=== PATIENT | female | born 1975 | race Caucasian/White ===

== ENCOUNTER 2017-04-10 12:37 | Emergency (ER) | payer OTHER | END 2017-04-10 13:30 | disposition home or self-care (01) | LOC: ER 12:37 | DX: M77.11 Lateral epicondylitis, right elbow (principal) | CPT/HCPCS: 73080; 99284 ==

== ENCOUNTER 2017-10-13 20:52 | Inpatient (IN) | payer OTHER ==
[~2017-10-13] VITALS: Ht 170.2 cm; Wt 80.3 kg
[~2017-10-13 20:52] MED LIST: DICL50TA2 PO; ONDA4TAB12 PO
[2017-10-13 22:23] LABS: BASO # 0.1 x10^3/uL (0.0-0.2); BASO % 1 % (0-3); EOS # 0.1 x10^3/uL (0.0-0.7); EOS % 1 % (0-3); HEMATOCRIT 45.9 % (36.0-47.0); HEMOGLOBIN 16.6 g/dL (12.0-15.5); LYMPH % 37 % (24-48); MEAN CORPUSCULAR HEMOGLOBIN 34 pg (25-35); MEAN CORPUSCULAR HGB CONC 36 g/dL (31-37); MEAN CORPUSCULAR VOLUME 93 fL (79-100); MONO # 0.9 x10^3/uL (0.0-1.1); MONO % 9 % (0-9); NEUT # 5.6 x10^3uL (1.8-7.7); NEUT % 52 % (31-73); PLATELET COUNT 202 x10^3/uL (140-400); RED BLOOD COUNT 4.94 x10^6/uL (3.50-5.40); RED CELL DISTRIBUTION WIDTH 13.2 % (11.5-14.5); WHITE BLOOD COUNT 10.7 x10^3/uL (4.0-11.0)
[2017-10-13 22:25] LABS: BILIRUBIN,URINE NEGATIVE (NEG); CLARITY,URINE CLOUDY; COLOR,URINE YELLOW; NITRITE,URINE NEGATIVE (NEG); PROTEIN,URINE NEGATIVE (NEG-TRACE); UROBILINOGEN,URINE 0.2 mg/dL (0.2 mg/dL)
[2017-10-13] MEDS ORDERED: fentaNYL PF VIAL 100 MCG/2 ML VIAL IV ONE (22:30)
[2017-10-13] MEDS ORDERED: ONDANSETRON PF 4 MG/2 ML VIAL. IV ONE (22:30)
[2017-10-13] MEDS ORDERED: IV NORMAL SALINE 1000ML BAG 1,000 ML IV SCH (22:30)
[2017-10-13] MEDS ORDERED: FAMOTIDINE 20 MG/2 ML VIAL IVP ONE (22:30)
[2017-10-13 22:34] LABS: BARBITURATES NEG (NEG); BENZODIAZEPINES NEG (NEG); CANNABINOIDS NEG (NEG); COCAINE NEG (NEG); METHADONE NEG (NEG); OPIATES NEG (NEG); PHENCYCLIDINE NEG (NEG)
[2017-10-13 22:35] LABS: AMORPHOUS SEDIMENT,UR PRESENT /HPF; BACTERIA,URINE 0 /HPF (0-FEW); SQUAMOUS EPITHELIAL CELL,UR MOD /LPF; TRICHOMONAS,URINE PRESENT; WBC,URINE TNTC /HPF (0-4)
[2017-10-13 22:38] LABS: AMPHETAMINE/METHAMPHETAMINE NEG (NEG)
[2017-10-13 22:39] LABS: ALBUMIN 3.9 g/dL (3.4-5.0); CALCIUM 9.3 mg/dL (8.5-10.1); CREATININE 0.7 mg/dL (0.6-1.0); GFR 91.8; TOTAL BILIRUBIN 0.4 mg/dL (0.2-1.0); TOTAL PROTEIN 7.7 g/dL (6.4-8.2)
[2017-10-13 22:45] LABS: POTASSIUM 2.9 mmol/L (3.5-5.1)
[2017-10-13] MEDS ORDERED: CONTRAST GIVEN. MC PRN (23:00)
--- NOTE | 2017-10-13 23:22 | RAD ---
PQRS Compliance statement: One or more of the following individualized dose reduction techniques were utilized for this examination: 1. Automated exposure control. 2. Adjustment of the mA and/or kV according to patient size. 3. Use of iterative reconstruction technique. Indication:abd pain TECHNIQUE: CT abdomen and pelvis with IV contrast with multiplanar reformats. COMPARISON: 04/23/2012 FINDINGS: Heart is normal in size. No pericardial or pleural effusion. Clear lung bases. Liver is moderately enlarged measuring 26 cm without focal lesion. No radiopaque gallstones. No pericholecystic fluid or gallbladder wall thickening. Spleen is not enlarged and show no focal lesion. Pancreas within normal limits without peripancreatic inflammatory changes or focal pancreatic lesion. Adrenal glands show no focal mass. No nephrolithiasis or hydronephrosis. No suspicious renal lesion. No free pelvic fluid or ascites. No enlarged retroperitoneal or pelvic adenopathy. Normal appendix. No bowel obstruction. Likely partial hysterectomy. Urinary bladder demonstrates no radiopaque stones. No pneumoperitoneum. No suspicious bony lesion. IMPRESSION: 1. Moderate hepatomegaly. Electronically signed by: Claudio Cha DO (10/13/2017 11:18 PM) [facility]
[2017-10-13] MEDS ORDERED: POTASSIUM CHLORIDE 20 MEQ TABLET.ER. PO ONE (23:30)
[2017-10-13] MEDS ORDERED: IOHEXOL 300 MG/ML 100ML VIAL. IV ONE (23:30)
--- NOTE | 2017-10-13 23:43 | PHYS DOC ---
Past Medical History Past Medical History: Hypertension Past Surgical History: Hysterectomy, Tonsillectomy, Tubal ligation Additional Past Surgical Histo: SCREWS ON R ANKLE Alcohol Use: Heavy Additional Information: PT DRANK 5 GLASSES OF WINE [employer] Drug Use: None Adult General Chief Complaint Chief Complaint: ABDOMINAL PAIN [facility] HPI Patient is a 42 year old female who presents with abdominal pain and bloating since Tuesday. She states that she had a bowel movement yesterday and it was normal for her. Patient states she has been drinking heavily last few months. Patient states at least 5 glasses of wine a night. Patient states she had 5 glasses of wine tonight. Patient states that at times she has burning with urination and she has an appointment at 9:30 in the morning with her doctor but states she could not make it that long. Patient has no known drug allergies. She rates her pain a 10 out of 10. Review of Systems Review of Systems Constitutional: Denies fever or chills [] Eyes: Denies change in visual acuity, redness, or eye pain [] HENT: Denies nasal congestion or sore throat [] Respiratory: Denies cough or shortness of breath [] Cardiovascular: No additional information not addressed in HPI [] GI: Right upper and left lower abdominal pain, nausea, vomiting. Denies bloody stools or diarrhea [] : Dysuria or hematuria [] Musculoskeletal: Denies back pain or joint pain [] Integument: Denies rash or skin lesions [] Neurologic: Denies headache, focal weakness or sensory changes [] Endocrine: Denies polyuria or polydipsia [] All other systems were reviewed and found to be within normal limits, except as documented in this note. Current Medications Current Medications Current Medications Medications (Trade) Dose Ordered Sig/Sheree Start Time Stop Time Status Last Admin Dose Admin Famotidine (Pepcid Vial) 20 mg 1X ONCE 10/13/17 22:30 10/13/17 22:31 DC 10/13/17 22:47 20 MG Fentanyl Citrate (Fentanyl 2ml Vial) 25 mcg 1X ONCE 10/13/17 22:30 10/13/17 22:31 DC 10/13/17 22:47 25 MCG Info (CONTRAST GIVEN -- Rx MONITORING) 1 each PRN DAILY PRN 10/13/17 23:00 10/15/17 22:59 Iohexol (Omnipaque 300 Mg/ml) 75 ml 1X ONCE 10/13/17 23:30 10/13/17 23:31 DC 10/13/17 23:09 75 ML Ondansetron HCl (Zofran) 4 mg 1X ONCE 10/13/17 22:30 10/13/17 22:31 DC 10/13/17 22:47 4 MG Potassium Chloride (Klor-Con) 40 meq 1X ONCE 10/13/17 23:30 10/13/17 23:31 DC 10/13/17 23:57 40 MEQ Sodium Chloride 1,000 ml @ 1,000 mls/hr Q1H 10/13/17 22:30 10/13/17 23:29 DC 10/13/17 22:47 1,000 MLS/HR Allergies Allergies Allergies Coded Allergies Type Severity Reaction Last Updated Verified No Known Drug Allergies 04/30/14 No Physical Exam Physical Exam Constitutional: Well developed, well nourished, no acute distress, non-toxic appearance. [] HENT: Normocephalic, atraumatic, bilateral external ears normal, oropharynx moist, no oral exudates, nose normal. [] Eyes: PERRLA, EOMI, conjunctiva normal, no discharge. [] Neck: Normal range of motion, no tenderness, supple, no stridor. [] Cardiovascular:Heart rate regular rhythm, no murmur [] Lungs & Thorax: Bilateral breath sounds clear to auscultation [] Abdomen: Bowel sounds normal, soft, RUQ and LUQ tenderness, no masses, no pulsatile masses. [] Skin: Warm, dry, no erythema, no rash. [] Back: No tenderness, no CVA tenderness. [] Extremities: No tenderness, no cyanosis, no clubbing, ROM intact, no edema. [] Neurologic: Alert and oriented X 3, normal motor function, normal sensory function, no focal deficits noted. [] Psychologic: Affect normal, judgement normal, mood normal. [] Current Patient Data Vital Signs Vital Signs Date Time Temp Pulse Resp B/P (MAP) Pulse Ox O2 Delivery O2 Flow Rate FiO2 10/13/17 22:47 22 Room Air 10/13/17 21:30 97.7 87 163/103 (123) 99 97.7 Lab Values Laboratory Tests Test 10/13/17 21:11 10/13/17 21:44 Urine Collection Type Unknown Urine Color Yellow Urine Clarity Cloudy Urine pH 6.0 Urine Specific [place] 1.010 Urine Protein Negative mg/dL (NEG-TRACE) Urine Glucose (UA) Negative mg/dL (NEG) Urine Ketones (Stick) Negative mg/dL (NEG) Urine Blood Moderate (NEG) Urine Nitrite Negative (NEG) Urine Bilirubin Negative (NEG) Urine Urobilinogen Dipstick 0.2 mg/dL (0.2 mg/dL) Urine Leukocyte Esterase Large (NEG) Urine RBC 11-20 /HPF (0-2) Urine WBC Tntc /HPF (0-4) Urine Squamous Epithelial Cells Mod /LPF Urine Amorphous Sediment Present /HPF Urine Bacteria 0 /HPF (0-FEW) Urine Mucus Slight /LPF Urine Trichomonas Present Urine Opiates Screen Neg (NEG) Urine Methadone Screen Neg (NEG) Urine Barbiturates Neg (NEG) Urine Phencyclidine Screen Neg (NEG) Urine Amphetamine/Methamphetamine Neg (NEG) Urine Benzodiazepines Screen Neg (NEG) Urine Cocaine Screen Neg (NEG) Urine Cannabinoids Screen Neg (NEG) Urine Ethyl Alcohol Pos (NEG) White Blood Count 10.7 x10^3/uL (4.0-11.0) Red Blood Count 4.94 x10^6/uL (3.50-5.40) Hemoglobin 16.6 g/dL (12.0-15.5) H Hematocrit 45.9 % (36.0-47.0) Mean Corpuscular Volume 93 fL (79-100) Mean Corpuscular Hemoglobin 34 pg (25-35) Mean Corpuscular Hemoglobin Concent 36 g/dL (31-37) Red Cell Distribution Width 13.2 % (11.5-14.5) Platelet Count 202 x10^3/uL (140-400) Neutrophils (%) (Auto) 52 % (31-73) Lymphocytes (%) (Auto) 37 % (24-48) Monocytes (%) (Auto) 9 % (0-9) Eosinophils (%) (Auto) 1 % (0-3) Basophils (%) (Auto) 1 % (0-3) Neutrophils # (Auto) 5.6 x10^3uL (1.8-7.7) Lymphocytes # (Auto) 4.0 x10^3/uL (1.0-4.8) Monocytes # (Auto) 0.9 x10^3/uL (0.0-1.1) Eosinophils # (Auto) 0.1 x10^3/uL (0.0-0.7) Basophils # (Auto) 0.1 x10^3/uL (0.0-0.2) Sodium Level 131 mmol/L (136-145) L Potassium Level 2.9 mmol/L (3.5-5.1) *L Chloride Level 96 mmol/L (98-107) L Carbon Dioxide Level 28 mmol/L (21-32) Anion Gap 7 (6-14) Blood Urea Nitrogen 4 mg/dL (7-20) L Creatinine 0.7 mg/dL (0.6-1.0) Estimated GFR (Cockcroft-Gault) 91.8 BUN/Creatinine Ratio 6 (6-20) Glucose Level 95 mg/dL (70-99) Calcium Level 9.3 mg/dL (8.5-10.1) Total Bilirubin 0.4 mg/dL (0.2-1.0) Aspartate Amino Transferase (AST) 23 U/L (15-37) Alanine Aminotransferase (ALT) 27 U/L (14-59) Alkaline Phosphatase 80 U/L (46-116) Troponin I Quantitative < 0.017 ng/mL (0.000-0.055) Total Protein 7.7 g/dL (6.4-8.2) Albumin 3.9 g/dL (3.4-5.0) Albumin/Globulin Ratio 1.0 (1.0-1.7) Lipase 1026 U/L (73-393) H Ethyl Alcohol Level 127 mg/dL (0-10) H Laboratory Tests 10/13/17 21:44 Laboratory Tests 10/13/17 21:44 EKG EKG Sinus rhythm, no STEMI[] Interpretation Time: [address] Ulloa Radiology/Procedures Radiology/Procedures [][facility] [address] [place] [address] IMAGING REPORT Signed PATIENT: CHRISTIE ARMSTRONG ACCOUNT: [id number] : 1975 LOCATION: ER AGE: 42 SEX: F EXAM STATUS: REG ER ORD. PHYSICIAN: KATELYN GONZALEZ APRN REASON: abdominal pain PROCEDURE: CT ABD PELV W/ IV CONTRST ONLY PQRS Compliance statement: One or more of the following individualized dose reduction techniques were utilized for this examination: 1. Automated exposure control. 2. Adjustment of the mA and/or kV according to patient size. 3. Use of iterative reconstruction technique. Indication:abd pain TECHNIQUE: CT abdomen and pelvis with IV contrast with multiplanar reformats. COMPARISON: 04/23/2012 FINDINGS: Heart is normal in size. No pericardial or pleural effusion. Clear lung bases. Liver is moderately enlarged measuring 26 cm without focal lesion. No radiopaque gallstones. No pericholecystic fluid or gallbladder wall thickening. Spleen is not enlarged and show no focal lesion. Pancreas within normal limits without peripancreatic inflammatory changes or focal pancreatic lesion. Adrenal glands show no focal mass. No nephrolithiasis or hydronephrosis. No suspicious renal lesion. No free pelvic fluid or ascites. No enlarged retroperitoneal or pelvic adenopathy. Normal appendix. No bowel obstruction. Likely partial hysterectomy. Urinary bladder demonstrates no radiopaque stones. No pneumoperitoneum. No suspicious bony lesion. IMPRESSION: 1. Moderate hepatomegaly. Electronically signed by: Claudio Cha DO (10/13/2017 11:18 PM) [facility] DICTATED and SIGNED BY: CLAUDIO CHA DO Course & Med Decision Making Course & Med Decision Making Upon examination patient's abdomen is distended but very soft. Patient has right upper and left mid to lower abdominal pain tenderness. Patient rates pain a 10 out of 10 patient states she drank 5 glasses of wine tonight. No masses were felt with palpation and abdomen. Patient's urine showed that she had Trichomonas. Flagyl was withholding the ED due to her alcohol intoxication. This was also told to the hospitalist Dr. Camacho when she was called. Patient's lipase is 1026 and potassium 2.9. Patient was given 40 potassium by mouth in the ED. She to be admitted for pancreatitis. Patient CT of the abdomen showed enlarged liver. Patient is alert and oriented. Patient is neurologically intact. [] Dragon Disclaimer Dragon Disclaimer This electronic medical record was generated, in whole or in part, using a voice recognition dictation system. Departure Departure Impression: Primary Impression: Pancreatitis Disposition: 09 ADMITTED INPATIENT Admitting Physician: Other Referrals: TYRELL COWAN MD (PCP) Problem Qualifiers Primary Impression: Pancreatitis Chronicity: acute Pancreatitis type: alcohol induced Acute pancreatitis complication: unspecified Qualified Codes: K85.20 - Alcohol induced acute pancreatitis without necrosis or infection KATELYN GONZALEZ [employer] RE[employer]IER Oct 13, 2017 23:43
[2017-10-14] VITALS (7 sets, daily range): BP systolic 100–124; BP diastolic 56–77
[2017-10-14] MEDS ORDERED: IV NORMAL SALINE 1000ML BAG 1,000 ML IV SCH (00:30)
[2017-10-14] MEDS: fentaNYL PF VIAL 100 MCG/2 ML VIAL IV PRN ×2 (00:31→03:33)
[2017-10-14] MEDS ORDERED: PHEN37.5 PO (01:36)
[2017-10-14] MEDS ORDERED: PHEN37.53 PO (01:36)
[2017-10-14] MEDS ORDERED: HYDR25TA9 PO (01:36)
[2017-10-14] MEDS ORDERED: ESTR1PAT31 TD (01:36)
--- NOTE | 2017-10-14 06:44 | EKG ---
[facility] [address] [place] [address] Test Date: 2017-10-13 Test Time: 22:33:13 Pat Name: CHRISTIE ARMSTRONG Department: Room: [facility] Gender: F Physical Integration Practitioner: : 1975 Requested By: KATELYN GONZALEZ Order Number: [id number] Reading MD: Chi Harper MD Measurements Intervals [place] Rate: 89 P: 30 MA: 138 QRS: 45 QRSD: 82 T: 52 QT: 378 QTc: 467 Interpretive Statements SINUS RHYTHM Electronically Signed On 10-18-2017 11:47:09 CDT by Chi Harper MD
[2017-10-14] MEDS ORDERED: ONDANSETRON PF 4 MG/2 ML VIAL. IV PRN ×2 (07:45→10:00)
--- NOTE | 2017-10-14 09:06 | PDOC2 ---
GI CONSULT Reason For Consult: Elevated lipase HPI: HPI: 42 y/o female admitted through ER. Intentional weight loss of 60 lbs w/ phentermine since 12/2016. Difficult breakup ~2 months ago, can't sleep, coping w/ heavy alcohol use of ~5 glasses of wine each night. Bloating and diffuse abd discomfort since Mon or Tu. No nausea or vomiting but hasn't eaten in a couple days - currently "starving." Thought maybe she had UTI, took some Azo - not sure if helped. Was started on "hormones" for possible menopause, had some diarrhea after this. No hematochezia or melena. No reflux or dysphagia. No previous EGD or colonoscopy. No liver, GB, or pancreas history. No NSAIDs. Never treated for depression. Again says she's starving. PMH: PMH: HTN (better w/ weight loss), partial hysterectomy, tonsillectomy, tubal ligation , right ankle repair w/ screws FH: Family History: Cancer (granmother - ?gastric lymphoma), Other (son - "esophagus condition") Social History: Smoke: 1 pack per day ALCOHOL: heavy Drugs: None ROS: GEN: Denies fevers, chills, sweats HEENT: Denies blurred vision, sore throat CV: Denies chest pain RESP: Denies shortness of air, cough GI: Per HPI : ?dysuria ENDO: +weight loss NEURO: Denies confusion, dizziness MSK: Denies weakness, joint pain/swelling SKIN: Denies jaundice, pruritus Vitals: Vitals: Vital Signs Date Time Temp Pulse Resp B/P (MAP) Pulse Ox O2 Delivery O2 Flow Rate FiO2 10/14/17 08:00 Room Air 10/14/17 07:59 98.0 72 16 110/61 (77) 98 98.0 Labs: Labs: Laboratory Tests Test 10/13/17 21:11 10/13/17 21:44 Urine Collection Type Unknown Urine Color Yellow Urine Clarity Cloudy Urine pH 6.0 Urine Specific [place] 1.010 Urine Protein Negative mg/dL (NEG-TRACE) Urine Glucose (UA) Negative mg/dL (NEG) Urine Ketones (Stick) Negative mg/dL (NEG) Urine Blood Moderate (NEG) Urine Nitrite Negative (NEG) Urine Bilirubin Negative (NEG) Urine Urobilinogen Dipstick 0.2 mg/dL (0.2 mg/dL) Urine Leukocyte Esterase Large (NEG) Urine RBC 11-20 /HPF (0-2) Urine WBC Tntc /HPF (0-4) Urine Squamous Epithelial Cells Mod /LPF Urine Amorphous Sediment Present /HPF Urine Bacteria 0 /HPF (0-FEW) Urine Mucus Slight /LPF Urine Trichomonas Present Urine Opiates Screen Neg (NEG) Urine Methadone Screen Neg (NEG) Urine Barbiturates Neg (NEG) Urine Phencyclidine Screen Neg (NEG) Urine Amphetamine/Methamphetamine Neg (NEG) Urine Benzodiazepines Screen Neg (NEG) Urine Cocaine Screen Neg (NEG) Urine Cannabinoids Screen Neg (NEG) Urine Ethyl Alcohol Pos (NEG) White Blood Count 10.7 x10^3/uL (4.0-11.0) Red Blood Count 4.94 x10^6/uL (3.50-5.40) Hemoglobin 16.6 g/dL (12.0-15.5) Hematocrit 45.9 % (36.0-47.0) Mean Corpuscular Volume 93 fL (79-100) Mean Corpuscular Hemoglobin 34 pg (25-35) Mean Corpuscular Hemoglobin Concent 36 g/dL (31-37) Red Cell Distribution Width 13.2 % (11.5-14.5) Platelet Count 202 x10^3/uL (140-400) Neutrophils (%) (Auto) 52 % (31-73) Lymphocytes (%) (Auto) 37 % (24-48) Monocytes (%) (Auto) 9 % (0-9) Eosinophils (%) (Auto) 1 % (0-3) Basophils (%) (Auto) 1 % (0-3) Neutrophils # (Auto) 5.6 x10^3uL (1.8-7.7) Lymphocytes # (Auto) 4.0 x10^3/uL (1.0-4.8) Monocytes # (Auto) 0.9 x10^3/uL (0.0-1.1) Eosinophils # (Auto) 0.1 x10^3/uL (0.0-0.7) Basophils # (Auto) 0.1 x10^3/uL (0.0-0.2) Sodium Level 131 mmol/L (136-145) Potassium Level 2.9 mmol/L (3.5-5.1) Chloride Level 96 mmol/L (98-107) Carbon Dioxide Level 28 mmol/L (21-32) Anion Gap 7 (6-14) Blood Urea Nitrogen 4 mg/dL (7-20) Creatinine 0.7 mg/dL (0.6-1.0) Estimated GFR (Cockcroft-Gault) 91.8 BUN/Creatinine Ratio 6 (6-20) Glucose Level 95 mg/dL (70-99) Calcium Level 9.3 mg/dL (8.5-10.1) Total Bilirubin 0.4 mg/dL (0.2-1.0) Aspartate Amino Transf (AST/SGOT) 23 U/L (15-37) Alanine Aminotransferase (ALT/SGPT) 27 U/L (14-59) Alkaline Phosphatase 80 U/L (46-116) Troponin I Quantitative < 0.017 ng/mL (0.000-0.055) Total Protein 7.7 g/dL (6.4-8.2) Albumin 3.9 g/dL (3.4-5.0) Albumin/Globulin Ratio 1.0 (1.0-1.7) Lipase 1026 U/L (73-393) Ethyl Alcohol Level 127 mg/dL (0-10) Allergies: Coded Allergies: No Known Drug Allergies (Unverified , 04/30/14) Medications: Current Medications Medications (Trade) Dose Ordered Sig/Sheree Route PRN Reason Start Time Stop Time Status Last Admin Dose Admin Sodium Chloride 1,000 ml @ 1,000 mls/hr Q1H IV 10/13/17 22:30 10/13/17 23:29 DC 10/13/17 22:47 Fentanyl Citrate (Fentanyl 2ml Vial) 25 mcg 1X ONCE IV 10/13/17 22:30 10/13/17 22:31 DC 10/13/17 22:47 Ondansetron HCl (Zofran) 4 mg 1X ONCE IV 10/13/17 22:30 10/13/17 22:31 DC 10/13/17 22:47 Famotidine (Pepcid Vial) 20 mg 1X ONCE IVP 10/13/17 22:30 10/13/17 22:31 DC 10/13/17 22:47 Iohexol (Omnipaque 300 Mg/ml) 75 ml 1X ONCE IV 8/30/18 23:30 10/13/17 23:31 DC 10/13/17 23:09 Potassium Chloride (Klor-Con) 40 meq 1X ONCE PO 10/13/17 23:30 10/13/17 23:31 DC 10/13/17 23:57 Fentanyl Citrate (Fentanyl 2ml Vial) 50 mcg PRN Q2HR PRN IV SEVERE PAIN 10/14/17 00:00 10/14/17 23:59 10/14/17 03:33 Sodium Chloride 1,000 ml @ 100 mls/hr Q10H IV 10/14/17 00:30 10/14/17 00:31 DC 10/14/17 00:30 Ondansetron HCl (Zofran) 4 mg PRN Q8HRS PRN IV NAUSEA/VOMITING 10/14/17 07:45 10/14/17 07:53 Imaging: Imaging: CT A/P IMPRESSION: 1. Moderate hepatomegaly. PE: GEN: NAD HEENT: Atraumatic, PERRL LUNGS: CTAB HEART: RRR ABD: NABS, soft, perhaps some distention, vaguely tender throughout EXTREMITY: No edema SKIN: No rashes, no jaundice NEURO/PSYCH: A & O 3 A/P: A/P: Abd bloating/discomfort Pancreatitis Hepatomegaly Trichomonas Intentional weight loss ?diarrhea CRC screen - average risk Alcohol overuse, depression, insomnia, hypokalemia, hyponatremia -- Pancreatitis and hepatomegaly likely 2/2 alcohol. Defer trichomonas and depression issues to primary, along w/ low Na+ and K+ Check US r/o cholelithiasis. Okay to start clears, ADAT after. HENRY WILLARD Oct 14, 2017 09:06
[2017-10-14] MEDS ORDERED: PANTOPRAZOLE 40 MG TABLET.DR. PO ONE (10:00)
[2017-10-14] MEDS ORDERED: chlordiazePOXIDE HCL 25 MG CAPSULE PO PRN (10:00)
[2017-10-14] MEDS: THIAMINE 100 MG TABLET. PO SCH (10:56)
[2017-10-14] MEDS: MULTIVITAMIN with MINERAL TABLET. PO SCH (10:56)
[2017-10-14] MEDS: FOLIC ACID 1 MG TABLET. PO SCH (10:56)
[2017-10-14] MEDS: IV NORMAL SALINE 1000ML BAG 1,000 ML IV SCH ×2 (10:56→20:33)
--- NOTE | 2017-10-14 11:03 | RAD ---
EXAM: Abdomen sonogram. HISTORY: Pancreatitis. TECHNIQUE: Sonographic imaging of the abdomen was performed. COMPARISON: CT dated 10/13/2017. FINDINGS: The liver is enlarged. There is hepatic steatosis. No focal hepatic lesion is seen. The common bile duct is normal in caliber. The gallbladder is unremarkable. The right kidney is unremarkable. The pancreas is partially obscured due to bowel gas. The aorta is normal in caliber. The inferior vena cava is patent. IMPRESSION: 1. Hepatomegaly and hepatic steatosis. 2. Partially obscured pancreas due to bowel gas. Electronically signed by: Anuja Canales MD (10/14/2017 10:59 AM) [facility] [id number]
[2017-10-14] MEDS ORDERED: NICOTINE 21MG PATCH. TD PRN (11:15)
--- NOTE | 2017-10-14 12:37 | PDOC1 ---
History and Physical Date of Admission Date of Admission DATE: 10/14/17 TIME: 12:35 Identification/Chief Complaint Chief Complaint Abdominal pain Source Source: Caregiver, Chart review, Patient History of Present Illness History of Present Illness 42-year-old female with no significant past medical history but does drink vodka - comes in because of abdominal pain x few days. NO diarrhea, no emesis. Lipase is 1026 on admission, with alcohol levels 127. Some mild hyponatremia 131 and critical hypokalemia 2.9. Fatty liver on imaging. Admitted for acute alcoholic pancreatitis. gallbladder looks normal, this is her first episode of pancreatitis. She is nontoxic appearing, abdomen is soft. Started on liquid diet by GI. Past Medical History Cardiovascular: No pertinent hx Pulmonary: No pertinent hx GI: No pertinent hx Heme/Onc: No pertinent hx Hepatobiliary: No pertinent hx Psych: No pertinent hx Rheumatologic: No pertinent hx Infectious disease: No pertinent hx ENT: No pertinent hx Renal/: No pertinent hx Endocrine: No pertinent hx Dermatology: No pertinent hx Past Surgical History Past Surgical History: No pertinent history Family History Family History: Hypertension Social History Smoke: 1 pack per day ALCOHOL: heavy Drugs: None Current Problem List Problem List Problems Medical Problems: (1) Hepatitis Status: Acute Current Medications Current Medications Current Medications Sodium Chloride 1,000 ml @ 1,000 mls/hr Q1H IV Last administered on 10/13/17at 22:47; Start 10/13/17 at 22:30; Stop 10/13/17 at 23:29; Status DC Fentanyl Citrate (Fentanyl 2ml Vial) 25 mcg 1X ONCE IV Last administered on at 22:47; Start 10/13/17 at 22:30; Stop 10/13/17 at 22:31; Status DC Ondansetron HCl (Zofran) 4 mg 1X ONCE IV Last administered on 10/13/17at 22:47 ; Start 10/13/17 at 22:30; Stop 10/13/17 at 22:31; Status DC Famotidine (Pepcid Vial) 20 mg 1X ONCE IVP Last administered on 10/13/17at 22: 47; Start 10/13/17 at 22:30; Stop 10/13/17 at 22:31; Status DC Iohexol (Omnipaque 300 Mg/ml) 75 ml 1X ONCE IV Last administered on 10/13/17at 23:09; Start 10/13/17 at 23:30; Stop 10/13/17 at 23:31; Status DC Potassium Chloride (Klor-Con) 40 meq 1X ONCE PO Last administered on at 23:57; Start 10/13/17 at 23:30; Stop 10/13/17 at 23:31; Status DC Info (CONTRAST GIVEN -- Rx MONITORING) 1 each PRN DAILY PRN MC SEE COMMENTS; Start 10/13/17 at 23:00; Stop 10/15/17 at 22:59 Fentanyl Citrate (Fentanyl 2ml Vial) 50 mcg PRN Q2HR PRN IV SEVERE PAIN Last administered on 10/14/17at 03:33; Start 10/14/17 at 00:00; Stop 10/14/17 at 23:59 Sodium Chloride 1,000 ml @ 100 mls/hr Q10H IV Last administered on 10/14/17at 00:30; Start 10/14/17 at 00:30; Stop 10/14/17 at 00:31; Status DC Ondansetron HCl (Zofran) 4 mg PRN Q8HRS PRN IV NAUSEA/VOMITING Last administered on 10/14/17at 07:53; Start 10/14/17 at 07:45; Stop 10/14/17 at 09:51 ; Status DC Ondansetron HCl (Zofran) 4 mg PRN Q6HRS PRN IV NAUSEA/VOMITING; Start 10/14/17 at 10:00 Sodium Chloride 1,000 ml @ 125 mls/hr Q8H IV Last administered on 10/14/17at 10 :56; Start 10/14/17 at 10:00 Multivitamins (Thera M Plus) 1 tab DAILY PO Last administered on 10/14/17at 10: 56; Start 10/14/17 at 11:00 Folic Acid (Folic Acid) 1 mg DAILY PO Last administered on 10/14/17at 10:56; Start 10/14/17 at 11:00 Thiamine Mononitrate (Vitamin B-1) 100 mg DAILY PO Last administered on at 10:56; Start 10/14/17 at 11:00 Pantoprazole Sodium (Protonix) 40 mg DAILYAC PO ; Start 10/15/17 at 07:30 Pantoprazole Sodium (Protonix) 40 mg 1X ONCE PO Last administered on at 10:56; Start 10/14/17 at 10:00; Stop 10/14/17 at 10:01; Status DC Chlordiazepoxide (Librium) 25 mg PRN Q6HRS PRN PO ANXIETY / AGITATION; Start at 10:00 Nicotine (Nicoderm Cq 21mg) 1 patch PRN DAILY PRN TD SMOKING CESSATION Last administered on 10/14/17at 11:30; Start 10/14/17 at 11:15 Active Scripts Active Reported Hydrochlorothiazide Tablet (Hydrochlorothiazide) 25 Mg Tablet 1 Tab PO DAILY Phentermine Hcl 37.5 Mg Capsule 0.5 Cap PO DAILYBFRLUN Phentermine Hcl 37.5 Mg Tablet 1 Tab PO DAILYAC Estradiol 1 Each Patch.tdwk 1 Patch TD WEEKLY Allergies Allergies: Coded Allergies: No Known Drug Allergies (Unverified , 04/30/14) ROS Review of System As per history of present illness, the rest of ROS 14 point negative Physical Exam General: Alert, Oriented X3, Cooperative, No acute distress HEENT: Atraumatic, PERRLA, EOMI Lungs: Clear to auscultation, Normal air movement Heart: S1S2, RRR, no thrills, no rubs, no gallops, no murmurs Cardiovascular: S1, S2 Breasts: Normal, Rt breast nml w/o mass, Lt breast nml w/o mass, Nipples normal Abdomen: Normal bowel sounds, Soft, No tenderness, No hepatosplenomegaly, No masses Rectal Exam: not examined PELVIC: Nml ext genitalia Extremities: No clubbing, No cyanosis, No edema, Normal pulses, No tenderness/ swelling Skin: No rashes, No breakdown, No significant lesion Neuro: Normal gait, Normal speech, Strength at 5/5 X4 ext, Normal tone, Sensation intact, Cranial nerves 3-12 NL, Reflexes 2+ Psych/Mental Status: Mental status NL, Mood NL Vitals Vitals Vital Signs Date Time Temp Pulse Resp B/P (MAP) Pulse Ox O2 Delivery O2 Flow Rate FiO2 10/14/17 11:11 98.2 78 16 100/56 (71) 98 98.2 10/14/17 08:00 Room Air Labs Labs Laboratory Tests Test 10/13/17 21:11 10/13/17 21:44 Urine Collection Type Unknown Urine Color Yellow Urine Clarity Cloudy Urine pH 6.0 Urine Specific [facility] 1.010 Urine Protein Negative mg/dL (NEG-TRACE) Urine Glucose (UA) Negative mg/dL (NEG) Urine Ketones (Stick) Negative mg/dL (NEG) Urine Blood Moderate (NEG) Urine Nitrite Negative (NEG) Urine Bilirubin Negative (NEG) Urine Urobilinogen Dipstick 0.2 mg/dL (0.2 mg/dL) Urine Leukocyte Esterase Large (NEG) Urine RBC 11-20 /HPF (0-2) Urine WBC Tntc /HPF (0-4) Urine Squamous Epithelial Cells Mod /LPF Urine Amorphous Sediment Present /HPF Urine Bacteria 0 /HPF (0-FEW) Urine Mucus Slight /LPF Urine Trichomonas Present Urine Opiates Screen Neg (NEG) Urine Methadone Screen Neg (NEG) Urine Barbiturates Neg (NEG) Urine Phencyclidine Screen Neg (NEG) Urine Amphetamine/Methamphetamine Neg (NEG) Urine Benzodiazepines Screen Neg (NEG) Urine Cocaine Screen Neg (NEG) Urine Cannabinoids Screen Neg (NEG) Urine Ethyl Alcohol Pos (NEG) White Blood Count 10.7 x10^3/uL (4.0-11.0) Red Blood Count 4.94 x10^6/uL (3.50-5.40) Hemoglobin 16.6 g/dL (12.0-15.5) Hematocrit 45.9 % (36.0-47.0) Mean Corpuscular Volume 93 fL (79-100) Mean Corpuscular Hemoglobin 34 pg (25-35) Mean Corpuscular Hemoglobin Concent 36 g/dL (31-37) Red Cell Distribution Width 13.2 % (11.5-14.5) Platelet Count 202 x10^3/uL (140-400) Neutrophils (%) (Auto) 52 % (31-73) Lymphocytes (%) (Auto) 37 % (24-48) Monocytes (%) (Auto) 9 % (0-9) Eosinophils (%) (Auto) 1 % (0-3) Basophils (%) (Auto) 1 % (0-3) Neutrophils # (Auto) 5.6 x10^3uL (1.8-7.7) Lymphocytes # (Auto) 4.0 x10^3/uL (1.0-4.8) Monocytes # (Auto) 0.9 x10^3/uL (0.0-1.1) Eosinophils # (Auto) 0.1 x10^3/uL (0.0-0.7) Basophils # (Auto) 0.1 x10^3/uL (0.0-0.2) Sodium Level 131 mmol/L (136-145) Potassium Level 2.9 mmol/L (3.5-5.1) Chloride Level 96 mmol/L (98-107) Carbon Dioxide Level 28 mmol/L (21-32) Anion Gap 7 (6-14) Blood Urea Nitrogen 4 mg/dL (7-20) Creatinine 0.7 mg/dL (0.6-1.0) Estimated GFR (Cockcroft-Gault) 91.8 BUN/Creatinine Ratio 6 (6-20) Glucose Level 95 mg/dL (70-99) Calcium Level 9.3 mg/dL (8.5-10.1) Total Bilirubin 0.4 mg/dL (0.2-1.0) Aspartate Amino Transf (AST/SGOT) 23 U/L (15-37) Alanine Aminotransferase (ALT/SGPT) 27 U/L (14-59) Alkaline Phosphatase 80 U/L (46-116) Troponin I Quantitative < 0.017 ng/mL (0.000-0.055) Total Protein 7.7 g/dL (6.4-8.2) Albumin 3.9 g/dL (3.4-5.0) Albumin/Globulin Ratio 1.0 (1.0-1.7) Lipase 1026 U/L (73-393) Ethyl Alcohol Level 127 mg/dL (0-10) Laboratory Tests Test 10/13/17 21:11 10/13/17 21:44 Urine Collection Type Unknown Urine Color Yellow Urine Clarity Cloudy Urine pH 6.0 Urine Specific [facility] 1.010 Urine Protein Negative mg/dL (NEG-TRACE) Urine Glucose (UA) Negative mg/dL (NEG) Urine Ketones (Stick) Negative mg/dL (NEG) Urine Blood Moderate (NEG) Urine Nitrite Negative (NEG) Urine Bilirubin Negative (NEG) Urine Urobilinogen Dipstick 0.2 mg/dL (0.2 mg/dL) Urine Leukocyte Esterase Large (NEG) Urine RBC 11-20 /HPF (0-2) Urine WBC Tntc /HPF (0-4) Urine Squamous Epithelial Cells Mod /LPF Urine Amorphous Sediment Present /HPF Urine Bacteria 0 /HPF (0-FEW) Urine Mucus Slight /LPF Urine Trichomonas Present Urine Opiates Screen Neg (NEG) Urine Methadone Screen Neg (NEG) Urine Barbiturates Neg (NEG) Urine Phencyclidine Screen Neg (NEG) Urine Amphetamine/Methamphetamine Neg (NEG) Urine Benzodiazepines Screen Neg (NEG) Urine Cocaine Screen Neg (NEG) Urine Cannabinoids Screen Neg (NEG) Urine Ethyl Alcohol Pos (NEG) White Blood Count 10.7 x10^3/uL (4.0-11.0) Red Blood Count 4.94 x10^6/uL (3.50-5.40) Hemoglobin 16.6 g/dL (12.0-15.5) Hematocrit 45.9 % (36.0-47.0) Mean Corpuscular Volume 93 fL (79-100) Mean Corpuscular Hemoglobin 34 pg (25-35) Mean Corpuscular Hemoglobin Concent 36 g/dL (31-37) Red Cell Distribution Width 13.2 % (11.5-14.5) Platelet Count 202 x10^3/uL (140-400) Neutrophils (%) (Auto) 52 % (31-73) Lymphocytes (%) (Auto) 37 % (24-48) Monocytes (%) (Auto) 9 % (0-9) Eosinophils (%) (Auto) 1 % (0-3) Basophils (%) (Auto) 1 % (0-3) Neutrophils # (Auto) 5.6 x10^3uL (1.8-7.7) Lymphocytes # (Auto) 4.0 x10^3/uL (1.0-4.8) Monocytes # (Auto) 0.9 x10^3/uL (0.0-1.1) Eosinophils # (Auto) 0.1 x10^3/uL (0.0-0.7) Basophils # (Auto) 0.1 x10^3/uL (0.0-0.2) Sodium Level 131 mmol/L (136-145) Potassium Level 2.9 mmol/L (3.5-5.1) Chloride Level 96 mmol/L (98-107) Carbon Dioxide Level 28 mmol/L (21-32) Anion Gap 7 (6-14) Blood Urea Nitrogen 4 mg/dL (7-20) Creatinine 0.7 mg/dL (0.6-1.0) Estimated GFR (Cockcroft-Gault) 91.8 BUN/Creatinine Ratio 6 (6-20) Glucose Level 95 mg/dL (70-99) Calcium Level 9.3 mg/dL (8.5-10.1) Total Bilirubin 0.4 mg/dL (0.2-1.0) Aspartate Amino Transf (AST/SGOT) 23 U/L (15-37) Alanine Aminotransferase (ALT/SGPT) 27 U/L (14-59) Alkaline Phosphatase 80 U/L (46-116) Troponin I Quantitative < 0.017 ng/mL (0.000-0.055) Total Protein 7.7 g/dL (6.4-8.2) Albumin 3.9 g/dL (3.4-5.0) Albumin/Globulin Ratio 1.0 (1.0-1.7) Lipase 1026 U/L (73-393) Ethyl Alcohol Level 127 mg/dL (0-10) VTE Prophylaxis Ordered VTE Prophylaxis Devices: Yes VTE Pharmacological Prophylaxi: Yes Assessment/Plan Assessment/Plan Acute alcoholic pancreatitis, gallbladder normal-first episode acute panc - CIWA, abdomen is benign, not needing pain medicines, agree with trial of liquid diet - Recheck lipase tomorrow - If tolerates by mouth diet and lipase does not increase, most likely discharge home tomorrow Alcohol counseling cessation done today 1-1 APpreciate LISA QUICK MD Oct 14, 2017 12:37
[2017-10-14] MEDS ORDERED: PHENAZOPYRIDINE 200 MG TABLET. PO ONE (13:30)
[2017-10-14] MEDS: PHENAZOPYRIDINE 200 MG TABLET. PO SCH (20:32)
[2017-10-14] MEDS ORDERED: ZOLPIDEM 5 MG TABLET. PO PRN (22:00)
[2017-10-15 03:00] VITALS: BP 122/66
[2017-10-15] MEDS: IV NORMAL SALINE 1000ML BAG 1,000 ML IV SCH ×2 (04:12→07:53)
[2017-10-15 05:05] LABS: CALCIUM 8.2 mg/dL (8.5-10.1); GFR 60.8; POTASSIUM 3.7 mmol/L (3.5-5.1)
[2017-10-15 07:00] VITALS: BP 173/79
[2017-10-15] MEDS ORDERED: PANTOPRAZOLE 40 MG TABLET.DR. PO SCH (07:30)
[2017-10-15] MEDS: THIAMINE 100 MG TABLET. PO SCH (07:53)
[2017-10-15] MEDS: PHENAZOPYRIDINE 200 MG TABLET. PO SCH (07:54)
[2017-10-15] MEDS: FOLIC ACID 1 MG TABLET. PO SCH (07:54)
[2017-10-15] MEDS: MULTIVITAMIN with MINERAL TABLET. PO SCH (07:54)
[2017-10-15 11:28] VITALS: BP 132/93
[2017-10-15] MEDS ORDERED: PHEN100T82 PO (11:37)
[2017-10-15] MEDS ORDERED: CIPR500T94 PO (11:37)
[2017-10-15] MEDS ORDERED: CLOTRIMAZOLE 1% VAGINAL CREAM 45GM TUBE. VG STA (11:40)
--- NOTE | 2017-10-15 11:40 | PDOC3 ---
Discharge Summary Visit Information Date of Admission: Oct 13, 2017 Date of Discharge: Oct 15, 2017 Admitting Diagnosis Comment: Acute alcoholic pancreatitis, gallbladder normal-first episode acute panc Final Diagnosis Problems Medical Problems: (1) Hepatitis Status: Acute Brief Hospital Course Allergies Allergies Coded Allergies Type Severity Reaction Last Updated Verified No Known Drug Allergies 04/30/14 No Vital Signs Vital Signs Date Time Temp Pulse Resp B/P (MAP) Pulse Ox O2 Delivery O2 Flow Rate FiO2 10/15/17 11:28 98.0 73 16 132/93 (106) 97 Room Air 98.0 Lab Results Laboratory Tests Test 10/13/17 21:11 10/13/17 21:44 10/15/17 03:30 Urine Collection Type Unknown Urine Color Yellow Urine Clarity Cloudy Urine pH 6.0 Urine Specific [facility] 1.010 Urine Protein Negative mg/dL (NEG-TRACE) Urine Glucose (UA) Negative mg/dL (NEG) Urine Ketones (Stick) Negative mg/dL (NEG) Urine Blood Moderate (NEG) Urine Nitrite Negative (NEG) Urine Bilirubin Negative (NEG) Urine Urobilinogen Dipstick 0.2 mg/dL (0.2 mg/dL) Urine Leukocyte Esterase Large (NEG) Urine RBC 11-20 /HPF (0-2) Urine WBC Tntc /HPF (0-4) Urine Squamous Epithelial Cells Mod /LPF Urine Amorphous Sediment Present /HPF Urine Bacteria 0 /HPF (0-FEW) Urine Mucus Slight /LPF Urine Trichomonas Present Urine Opiates Screen Neg (NEG) Urine Methadone Screen Neg (NEG) Urine Barbiturates Neg (NEG) Urine Phencyclidine Screen Neg (NEG) Urine Amphetamine/Methamphetamine Neg (NEG) Urine Benzodiazepines Screen Neg (NEG) Urine Cocaine Screen Neg (NEG) Urine Cannabinoids Screen Neg (NEG) Urine Ethyl Alcohol Pos (NEG) White Blood Count 10.7 x10^3/uL (4.0-11.0) Red Blood Count 4.94 x10^6/uL (3.50-5.40) Hemoglobin 16.6 g/dL (12.0-15.5) Hematocrit 45.9 % (36.0-47.0) Mean Corpuscular Volume 93 fL (79-100) Mean Corpuscular Hemoglobin 34 pg (25-35) Mean Corpuscular Hemoglobin Concent 36 g/dL (31-37) Red Cell Distribution Width 13.2 % (11.5-14.5) Platelet Count 202 x10^3/uL (140-400) Neutrophils (%) (Auto) 52 % (31-73) Lymphocytes (%) (Auto) 37 % (24-48) Monocytes (%) (Auto) 9 % (0-9) Eosinophils (%) (Auto) 1 % (0-3) Basophils (%) (Auto) 1 % (0-3) Neutrophils # (Auto) 5.6 x10^3uL (1.8-7.7) Lymphocytes # (Auto) 4.0 x10^3/uL (1.0-4.8) Monocytes # (Auto) 0.9 x10^3/uL (0.0-1.1) Eosinophils # (Auto) 0.1 x10^3/uL (0.0-0.7) Basophils # (Auto) 0.1 x10^3/uL (0.0-0.2) Sodium Level 131 mmol/L (136-145) 140 mmol/L (136-145) Potassium Level 2.9 mmol/L (3.5-5.1) 3.7 mmol/L (3.5-5.1) Chloride Level 96 mmol/L (98-107) 108 mmol/L (98-107) Carbon Dioxide Level 28 mmol/L (21-32) 27 mmol/L (21-32) Anion Gap 7 (6-14) 5 (6-14) Blood Urea Nitrogen 4 mg/dL (7-20) 5 mg/dL (7-20) Creatinine 0.7 mg/dL (0.6-1.0) 1.0 mg/dL (0.6-1.0) Estimated GFR (Cockcroft-Gault) 91.8 60.8 BUN/Creatinine Ratio 6 (6-20) Glucose Level 95 mg/dL (70-99) 92 mg/dL (70-99) Calcium Level 9.3 mg/dL (8.5-10.1) 8.2 mg/dL (8.5-10.1) Total Bilirubin 0.4 mg/dL (0.2-1.0) Aspartate Amino Transf (AST/SGOT) 23 U/L (15-37) Alanine Aminotransferase (ALT/SGPT) 27 U/L (14-59) Alkaline Phosphatase 80 U/L (46-116) Troponin I Quantitative < 0.017 ng/mL (0.000-0.055) Total Protein 7.7 g/dL (6.4-8.2) Albumin 3.9 g/dL (3.4-5.0) Albumin/Globulin Ratio 1.0 (1.0-1.7) Lipase 1026 U/L (73-393) 183 U/L (73-393) Ethyl Alcohol Level 127 mg/dL (0-10) Laboratory Tests Test 10/15/17 03:30 Sodium Level 140 mmol/L (136-145) Potassium Level 3.7 mmol/L (3.5-5.1) Chloride Level 108 mmol/L (98-107) Carbon Dioxide Level 27 mmol/L (21-32) Anion Gap 5 (6-14) Blood Urea Nitrogen 5 mg/dL (7-20) Creatinine 1.0 mg/dL (0.6-1.0) Estimated GFR (Cockcroft-Gault) 60.8 Glucose Level 92 mg/dL (70-99) Calcium Level 8.2 mg/dL (8.5-10.1) Lipase 183 U/L (73-393) Brief Hospital Course Ms. Irizarry is a 42 old [sex] who presented with [ ]42-year-old female with no significant past medical history but does drink vodka - comes in because of abdominal pain x few days. NO diarrhea, no emesis. Lipase is 1026 on admission, with alcohol levels 127. Some mild hyponatremia 131 and critical hypokalemia 2.9. Fatty liver on imaging. Admitted for acute alcoholic pancreatitis. gallbladder looks normal, this is her first episode of pancreatitis. She is nontoxic appearing, abdomen is soft. Started on liquid diet by GI. COURSE: better after overnight fasting, gallbladder ultrasound is normal. Lipase down to normal after 24-48 hrs. of fasting. Incidentally some vaginal itching, I have Rx or gave her Diflucan by mouth and some vaginal clotrimazole before going home. Pyridium also Rx and started here. No STD as per her account. Cipro him. Although UA is negative, given to her as per her request consults performed GI Procedures performed none Time spent discharge less than 30 minutes Discharge Information Condition at Discharge: Improved, Stable Disposition/Orders: D/C to Home Scheduled Ciprofloxacin Hcl (Cipro) 500 Mg Tablet, 500 MG PO BID for 7 Days, Ref 0 Prescribed by: LISA BARILLAS on 10/15/17 1137 Estradiol (Estradiol) 1 Each Patch.tdwk, 1 PATCH TD WEEKLY, (Reported) Entered as Reported by: CONNIE FLORES on 10/14/17135 Last Action: New Order on 10/14/17135 by CONNIE FLORES Hydrochlorothiazide (Hydrochlorothiazide Tablet ) 25 Mg Tablet, 1 TAB PO DAILY, (Reported) Entered as Reported by: CONNIE FLORES on 10/14/17135 Last Action: New Order on 10/14/17135 by CONNIE FLORES Phenazopyridine Hcl (Pyridium) 100 Mg Tablet, 100 MG PO TID for 30 Days, #90 Prescribed by: LISA BARILLAS on 10/15/17 1137 Phentermine Hcl (Phentermine Hcl) 37.5 Mg Tablet, 1 TAB PO DAILYAC, (Reported) Entered as Reported by: CONNIE FLORES on 10/14/17135 Last Action: New Order on 10/14/17135 by CONNIE FLORES Phentermine Hcl (Phentermine Hcl) 37.5 Mg Capsule, 0.5 CAP PO DAILYBFRLUN, ( Reported) Entered as Reported by: CONNIE FLORES on 10/14/17135 Last Action: New Order on 10/14/17135 by LISA LEE MD Oct 15, 2017 11:40
[2017-10-15] MEDS ORDERED: FLUCONAZOLE 100 MG TABLET. PO ONE (11:45)
== END 2017-10-15 12:25 | disposition home or self-care (01) | DRG 439 ==
LOC: ER 20:52 → 6 SOUTH 23:50
PROVIDERS: ADMIT Internal Medicine; ATTEND Internal Medicine
DX: K85.20 Alcohol induced acute pancreatitis without necrosis or infection (principal); E87.1 Hypo-osmolality and hyponatremia; K75.9 Inflammatory liver disease, unspecified; E87.6 Hypokalemia; F17.210 Nicotine dependence, cigarettes, uncomplicated; I10 Essential (primary) hypertension; K76.0 Fatty (change of) liver, not elsewhere classified; Z79.890 Hormone replacement therapy; Z90.710 Acquired absence of both cervix and uterus; Z79.899 Other long term (current) drug therapy; Z80.7 Family history of other malignant neoplasms of lymphoid, hematopoietic and related tissues; Z82.49 Family history of ischemic heart disease and other diseases of the circulatory system; Z71.41 Alcohol abuse counseling and surveillance of alcoholic
CPT/HCPCS: 36415; 74177; 76705; 80048; 80053; 80307; 81001; 83690; 84484; 85025; 87086; 93005; 96374; 96375; 99406; G0480; J2405; J3010; J7030; Q9967; S0028; 99285-25; G0479

== ENCOUNTER 2018-06-26 17:16 | Emergency (ER) | payer OTHER ==
[~2018-06-26] VITALS: Ht 170.2 cm; Wt 84.8 kg
[~2018-06-26 17:16] MED LIST changes: +CIPR500T94 PO; +ESTR1PAT31 TD; +HYDR-2145 PO; +PHEN100T82 PO; +PHEN37.5 PO; +PHEN37.53 PO
[2018-06-26] MEDS ORDERED: DEXAMETHASONE 4 MG TABLET PO STA (18:42)
[2018-06-26 18:43] VITALS: BP 141/86
[2018-06-26] MEDS ORDERED: KETOROLAC 30 MG/ML VIAL. IM ONE (18:45)
--- NOTE | 2018-06-26 18:47 | PHYS DOC ---
Past Medical History Past Medical History: Hypertension (BEAR COLEY APRN) Past Surgical History: Hysterectomy, Tonsillectomy, Tubal ligation Additional Past Surgical Histo: SCREWS ON R ANKLE (BEAR COLEY APRN) Smoking: Cigarettes, 1 Pack Per Day Alcohol Use: Heavy Drug Use: None (BEAR COLEY APRN) Adult General Chief Complaint Chief Complaint: LOWER EXT PAIN HPI HPI Patient is a 43 year old female who presents with left posterior and lateral knee pain that lasted for month. Patient states that she has been trying naproxen home and is not working. 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 Denies any associated symptoms. Rates pain 6/10 and throbbing. (BEAR COLEY APRN) Review of Systems Review of Systems Constitutional: Denies fever or chills [] Eyes: Denies change in visual acuity, redness, or eye pain [] HENT: Denies nasal congestion or sore throat [] Respiratory: Denies cough or shortness of breath [] Cardiovascular: No additional information not addressed in HPI [] GI: Denies abdominal pain, nausea, vomiting, bloody stools or diarrhea [] : Denies dysuria or hematuria [] Musculoskeletal: Denies back pain or joint pain with exception of posterior and lateral L knee. Integument: Denies rash or skin lesions [] Neurologic: Denies headache, focal weakness or sensory changes [] Endocrine: Denies polyuria or polydipsia [] Complete systems were reviewed and found to be within normal limits, except as documented in this note. (BEAR COLEY APRN) Current Medications Current Medications Current Medications Medications (Trade) Dose Ordered Sig/Sheree Start Time Stop Time Status Last Admin Dose Admin Dexamethasone (Decadron) 10 mg 1X STAT 06/26/18 18:42 06/26/18 18:43 DC 06/26/18 19:05 10 MG Ketorolac Tromethamine (Toradol 30mg Vial) 30 mg 1X ONCE 06/26/18 18:45 06/26/18 18:46 DC 06/26/18 19:02 30 MG (KHADRA CRAWFORD MD) Allergies Allergies Allergies Coded Allergies Type Severity Reaction Last Updated Verified No Known Drug Allergies 04/30/14 No (KHADRA CRAWFORD MD) Physical Exam Physical Exam Constitutional: Well developed, well nourished, no acute distress, non-toxic appearance. [] HENT: Normocephalic, atraumatic, bilateral external ears normal, oropharynx moist, no oral exudates, nose normal. [] Eyes: PERRLA, EOMI, conjunctiva normal, no discharge. [] Neck: Normal range of motion, no tenderness, supple, no stridor. [] Cardiovascular:Heart rate regular rhythm, no murmur [] Lungs & Thorax: Bilateral breath sounds clear to auscultation [] Abdomen: Soft, no tenderness, no masses, no pulsatile masses. [] Skin: Warm, dry, no erythema, no rash. [] Back: No tenderness, no CVA tenderness. [] Extremities: No tenderness with exception of L knee posterior and lateral, no cyanosis, no clubbing, ROM intact but painful on LLE, no edema. [] Neurologic: Alert and oriented X 3, normal motor function, normal sensory function, no focal deficits noted. [] Psychologic: Affect normal, judgement normal, mood normal. [] (BEAR COLEY APRN) Current Patient Data Vital Signs Vital Signs Date Time Temp Pulse Resp B/P (MAP) Pulse Ox O2 Delivery O2 Flow Rate FiO2 06/26/18 18:43 98.6 80 20 141/86 (104) 100 Room Air 98.6 (KHADRA CRAWFORD MD) EKG EKG [] (BEAR COLEY APRN) Radiology/Procedures Radiology/Procedures xray interpreted by Dr. Crawford No acute fracture of dislocation.[] (BEAR COLEY APRN) Course & Med Decision Making Course & Med Decision Making Pertinent Labs and Imaging studies reviewed. (See chart for details) Will order x-ray, steroid, and pain medication. Patient is agreeable. xray negative. Will send home with f/u to pcp and ortho. Will order amy wrap. (BEAR COLEY APRN) Course & Med Decision Making Staff Physician Addendum: I was working in the ER during the course of this patient's visit. I was available for consultation as needed, but I was not directly involved in the care of this patient. (KHADRA CRAWFORD MD) Dragon Disclaimer Dragon Disclaimer This electronic medical record was generated, in whole or in part, using a voice recognition dictation system. (BEAR COLEY APRN) Departure Departure Impression: Primary Impression: Knee pain, acute Disposition: HOME, SELF-CARE Condition: STABLE Referrals: TYRELL COWAN MD (PCP) RADHA LUI II, MD Patient Instructions: Knee Wraps (Elastic Bandage) and RICE Additional Instructions: Follow up with your primary care doctor and orthopedics. Take naproxen and wear amy bandage. Use RICE. Scripts Naproxen (NAPROXEN) 500 Mg Tablet 1 TAB PO BID, #30 TAB 1 Refill Prov: BEAR COLEY APRN 06/26/18 Problem Qualifiers Primary Impression: Knee pain, acute Laterality: left Qualified Codes: M25.562 - Pain in left knee BEAR COLEY APRN June 26, 2018 18:47 KHADRA CRAWFORD MD June 27, 2018 06:28
[2018-06-26] MEDS ORDERED: NAPR-514 PO (19:44)
--- NOTE | 2018-06-26 23:58 | RAD ---
Three-view left knee radiographs 06/26/2018 CLINICAL HISTORY: Left knee pain. AP, lateral and oblique digital radiographs left knee were obtained. No fracture or dislocation of the left knee is seen. Very mild degenerative changes are seen involving all 3 compartments of the left knee. IMPRESSION: Very mild degenerative changes are seen involving the left knee. No acute osseous abnormality is seen. Electronically signed by: Praveen Dodson MD (06/26/2018 11:55 PM) [facility]
== END 2018-06-26 20:05 | disposition home or self-care (01) ==
LOC: ER 17:16
DX: M25.562 Pain in left knee (principal); I10 Essential (primary) hypertension; Z98.51 Tubal ligation status; Z90.710 Acquired absence of both cervix and uterus; F10.20 Alcohol dependence, uncomplicated; F17.210 Nicotine dependence, cigarettes, uncomplicated
CPT/HCPCS: 73562; 96372; 99284; J1885; J8540